=== PATIENT | female | born 1985 | race Hispanic/Latino ===

== ENCOUNTER 2018-05-17 20:13 | Observation (INO) ==
[2018-05-17] MEDS ORDERED: NS 1,000 ML IV ONE (20:57)
[2018-05-17 21:10] LABS: BASO# 0.01 X1000 (0.0-0.2); BASO% 0.1 % (0.0-0.8); EOS# 0.06 X1000 (0.0-0.7); EOS% 0.5 % (0.0-10.0); HEMATOCRIT 36.9 % (37.0-47.0); HEMOGLOBIN 12.8 g/dL (12.0-16.0); IMM GRAN# 0.03 X1000 (0.0-0.04); IMM GRAN% 0.3 % (0.0-0.5); LYMPH# 0.98 X1000 (1.2-3.4); LYMPH% 8.5 % (20.5-51.1); MCH 30.8 PG (27-31); MCHC 34.7 g/dL (33-37); MCV 88.9 FL (81-99); MONO# 0.73 X1000 (0.11-0.59); MONO% 6.3 % (1.7-9.3); MPV 11.5 FL (7.4-10.4); NEUT# 9.78 X1000 (1.4-6.5); NEUT% 84.3 % (42.2-75.2); PLT 193 X1000 (130-400); RBC 4.15 XMIL (4.2-5.4); RDW 12.9 % (11.5-14.5); WBC 11.59 X1000 (4.8-10.8)
[2018-05-17 21:11] LABS: BILIRUBIN URINE NEGATIVE (NEGATIVE); BLOOD URINE NEGATIVE (NEGATIVE); CLARITY SL. CLOUDY (CLEAR); COLOR YELLOW; GLUCOSE URINE NEGATIVE (NEGATIVE); KETONE URINE 3+(Large) mg/dL (NEGATIVE); LEUKOCYTES URINE 1+ (NEGATIVE); NITRITE URINE NEGATIVE (NEGATIVE); PROTEIN URINE 2+(100 mg/dL) mg/dL (NEGATIVE); UROBILINOGEN URINE 1 mg/dL
[2018-05-17 21:16] LABS: URINE BACTERIA 1+ /HFP; URINE EPITHELIAL CELLS >10 /HPF (<10)
[2018-05-17 21:17] LABS: URINE CAST NONE SEEN /LPF; URINE CRYSTAL NONE SEEN /HPF; URINE SOURCE CLEAN CATCH; URINE WBC <10 /HPF (<10); URINE YEAST NONE SEEN /HPF
[2018-05-17 21:34] LABS: AGAP 13; ALBUMIN 4.5 g/dL (3.5-5.0); ALKALINE PHOSPHATASE 62 U/L (32-104); AMYLASE 38 U/L (20-200); BUN 11 mg/dL (8-22); CALCIUM 8.6 mg/dL (8.8-10.2); CHLORIDE 99 mmol/L (98-107); COSMO 280; CREATININE 0.5 mg/dL (0.5-0.9); ESTIMATED GFR > 60; GLUCOSE 147 mg/dL (70-104); GOT 30 U/L (10-30); GPT 46 U/L (10-36); LIPASE 14 U/L (13-60); MAGNESIUM 1.6 mg/dL (1.5-2.7); SODIUM 139 mmol/L (136-145); TCO2 27 mmol/L (25-35); TOTAL PROTEIN 7.2 g/dL (6.3-8.3)
[2018-05-17 21:48] LABS: INFLUENZA A NEGATIVE (NEGATIVE); INFLUENZA B NEGATIVE (NEGATIVE)
[2018-05-17] MEDS ORDERED: MORPHINE IV ONE (21:54)
--- NOTE | 2018-05-18 00:10 | PROVIDER DOCUMENTATION ---
This chart was entered by Martina Dunham Scribe, acting as scribe for Shonda Stein MD. HPI-Abdominal Pain/GI Problem - General Chief Complaint: Abdominal Pain Stated Complaint: N/V/D Time Seen by Provider: 05/17/18 20:53 Source: patient Allergies/Adverse Reactions: Patient Allergies Allergy/AdvReac Type Severity Reaction Status Date / Time No Known Allergies Allergy Verified 05/17/18 20:27 Home Medications: Home Medication List Medication Instructions Recorded Confirmed Last Taken Type Pnv Cmb#95/Ferrous Fumarate/FA 1 tab PO DAILY 12/14/14 12/14/14 12/13/14 09:00 History [ Tablet] Hydrocodone/APAP 10 mg/325 mg 1 each PO Q3-4H PRN PRN #30 tablet 12/16/14 Unknown Rx [[id number]] - History of Present Illness-ABD Abdominal Pain Onset Location: reports: generalized abdomen Pain Radiation: reports: no radiation Quality of Pain: reports: pressure Severity in ED: reports: moderate Onset/Duration: reports: 1-3 hours ago, this afternoon Timing: reports: still present Activities at Onset: reports: light activity Exposure to sick contacts?: No Modifying Factors: improves with: nothing Associated Symptoms: reports: diarrhea, fatigue, fever/chills, nausea, vomiting Last BM: this evening Dark Stools Present?: reports: none noticed Rectal Bleeding: reports: none Rectal Pain: reports: none Bruising or Bleeding Gums?: No Similar Symptoms Previously?: No Recently seen or treated by another doctor?: No Review of Systems - Adult - REVIEW OF SYSTEMS - ADULT Constitutional: reports: chills, fatique. denies: fever Eyes: reports: no symptoms reported Ears, Nose, Mouth & Throat: reports: no symptoms reported Cardiovascular: denies: chest pain, palpitations, syncope Respiratory: denies: cough, shortness of breath Gastrointestinal: reports: abdominal pain, diarrhea, nausea, vomiting Genitourinary: reports: no symptoms reported Musculoskeletal: reports: muscle aches Integumentary: reports: no symptoms reported Neurological: reports: headache/migraines Psychiatric: reports: no symptoms reported Endocrine: reports: no symptoms reported Hematologic/Lymphatic: reports: no symptoms reported Allergic/Immunologic: reports: no symptoms reported All Other Systems: Reviewed and Negative Past History - Adult - PAST MEDICAL HISTORY-ADULT Review of Records: reports: Old Records Reviewed, Nursing Assessment Review, Medications Reviewed, Social history reviewed & non-contributory. Major Childhood Illnesses: reports: denies history Cardiovascular: reports: hyperlipidemia Respiratory: reports: denies history Gastrointestinal: reports: denies history Obstetrical/Gynecological: reports: denies history Genitourinary: reports: denies history Musculoskeletal: reports: denies history Neurological: reports: denies history Endocrine/Immune: reports: Diabetes Other Conditions: reports: denies history - IMMUNIZATION STATUS Childhood Immunizations: See Nurse Assessment Flu Vaccine: See Nurse Assessment - FAMILY HISTORY Family History: reviewed, not pertinent - SOCIAL HISTORY Smoking: denies Substance Use: denies Living Situation: family Physical Exam-General - PHYSICAL EXAM-ADULT Initial Vital Signs Reviewed: Yes - CONSTITUTIONAL General Appearance: alert, mild distress - EYES Eyes: PERRL/EOMI - HEAD, EARS, NOSE, MOUTH & THROAT HENMT: normocephalic/atraumatic, moist mucous membranes, normal ENT inspection - NECK Neck: non-tender, full range of motion, supple, normal inspection - RESPIRATORY Respiratory: chest non-tender, lungs clear, normal breath sounds - CARDIOVASCULAR Cardiovascular: normal peripheral pulses, regular rate, rhythm, no edema - GASTROINTESTINAL (ABDOMEN) Abdominal Exam: soft, abnormal bowel sounds (decreased bowel sounds), tenderness (epigastric tenderness) - LYMPHATIC Lymphatic: no adenopathy - MUSCULOSKELETAL Back Exam: normal inspection, no CVA tenderness, no vertebral tenderness Extremity: normal range of motion, non-tender, normal gait, normal inspection - SKIN Integumentary: normal color, normal turgor, warm/dry - NEUROLOGIC Neurologic: grossly normal, no motor/sensory deficits - PSYCHIATRIC Psych/Mental Status: normal mood/affect, normal thought content, normal thought process, oriented x 3 Progress - PLAN OF CARE/RESULTS Progress/Plan/Lab Results: Vital Signs - 8 hr 05/17/18 20:18 Temperature 98.2 F Pulse Rate 93 H Respiratory Rate 20 Blood Pressure 103/69 O2 Sat by Pulse Oximetry 96 Laboratory Results - last 24 hr 05/17/18 05/17/18 20:43 20:58 WBC 11.59 H RBC 4.15 L Hgb 12.8 Hct 36.9 L MCV 88.9 MCH 30.8 MCHC 34.7 RDW Std Deviation 12.9 Plt Count 193 MPV 11.5 H Immature Gran % (Auto) 0.3 Neut % (Auto) 84.3 H Lymph % (Auto) 8.5 L [place] % (Auto) 6.3 Eos % (Auto) 0.5 Baso % (Auto) 0.1 Immature Gran # (Auto) 0.03 Neut # (Auto) 9.78 H Lymph # (Auto) 0.98 L [place] # (Auto) 0.73 H Eos # (Auto) 0.06 Baso # (Auto) 0.01 Urine Color YELLOW Urine Clarity SL. CLOUDY A Urine pH 9.0 Ur Specific [place] 1.010 Urine Protein 2+(100 mg/dL) A Urine Ketones 3+(Large) A Urine Blood NEGATIVE Urine Nitrite NEGATIVE Urine Bilirubin NEGATIVE Urine Urobilinogen 1 Urine WBC 1+ A Urine Glucose NEGATIVE Orders Category Date Time Status ED: Urine Bedside ORDERED Care 05/17/18 20:28 Active NPO Diet 05/17/18 20:[address] ABD/PELVIS W/IV CONT ONLY [CT] Stat Exams 05/17/18 21:00 Ordered AMYLASE [CHEM] Stat Lab 05/17/18 20:58 Received CBC WITH DIFF [HEME] Stat Lab 05/17/18 20:58 Completed COMPREHENSIVE METABOLIC PANEL [CHEM] Stat Lab 05/17/18 20:[address] Stat Lab 05/17/18 21:04 Ordered LIPASE [CHEM] Stat Lab 05/17/18 20:58 Received MAGNESIUM [CHEM] Stat Lab 05/17/18 20:58 Received TEST-URINE [PREG] Stat Lab 05/17/18 20:43 Received ua [URINALYSIS PL W/POSS RFLX CULT] [URINALYSIS] Stat Lab 05/17/18 20:43 Results 0.9% Sodium Chloride Inj [Ns] 1,000 ml Med 05/17/18 20:57 Active IV 999 mls/hr Abd Pain/OB <20 weeks Stat Oth 05/17/18 20:28 Ordered Result Diagrams: 05/17/18 20:58 05/17/18 20:58 - REASSESSMENT Reassessment #1 Time Reassessed: 23:40 Status: other (PENDING HOSPITALIST TO CALL FOR FOR THIS 32 YEAR OLD FEMALE WITH HISTORY OF DM (NOT ON ANY MEDICATION) PRESENTS WITH ABDOMINAL PAIN OUT OF PROPORTION WITH MILDLY NEUTROPHILIC LEUKOCYTOSIS WITH CT REVEALING ONLY PROBABLE LEFT OVARIAN CYST. SLIGHTLY UA WITH UTI BUT ASYMPTOMATIC.) Reassessment #2 Time Reassessed: 00:09 Status: other (SPOKE TO HOSPITALIST; APPRECITE THEIR ASSISTANC.E) Departure - Departure Date of Disposition Decision: 05/18/18 Time of Disposition Decision: 00:09 DIAGNOSIS: Abdominal pain, Ovarian cyst Disposition: ADMITTED INPATIENT Certified Medical Emergency: Emergent Condition: Fair Referrals and Follow-Ups: Anastasia Dyer CRNP [Primary Care Provider] - - Critical Care Note This patient required my direct & personal management of CC.: No Attestation - Physician/ JAMSHID Attestation Patient care was provided by Advanced Practice Provider:: No The physician spent face to face time with patient:: Yes Advanced Practice Provider documentation review:: Supervising physician onsite and consulted in the evaluation and care of this patient. The physician did have a face to face encounter with the patient. This chart was documented by the indicated scribe, (Martina Dunham, Manuel) and a ccurately reflects the services I performed and decisions made by me, Shonda Stein MD, as attested by the provider's signature.
[2018-05-18] MEDS ORDERED: NS 1,000 ML IV ONE (00:12)
[2018-05-18] MEDS ORDERED: MORPHINE IV SCH (00:15)
[2018-05-18] MEDS ORDERED: MORPHINE IV PRN (02:22)
--- NOTE | 2018-05-18 05:58 | Diag Imaging Result Doc PS360 ---
EXAM: CT ABD/PELVIS W/IV CONT ONLY HISTORY: EPIGASTIRC PAIN TECHNIQUE: CT abdomen and pelvis with intravenous contrast COMPARISON: None. FINDINGS: There is prominent fatty infiltration of the liver. No calcified gallstones or adjacent inflammation. Normal spleen, pancreas, adrenal glands, and kidneys. No hydronephrosis. Normal aorta. Normal appendix. No abscess. There is stool throughout the colon. No bowel obstruction. No ascites. There is a 3.7 cm left ovarian cyst. There are small right ovarian cyst. Normal uterus with a small amount of fluid in the uterine cavity. The urinary bladder is only mildly distended. IMPRESSION: 1.Fatty infiltration of the liver 2.There is a 3.7 cm left ovarian cyst 3.Constipation 4.A preliminary report was given at 10:43 PM on 05/17/2018 This exam was performed using automated exposure control, adjustment of mA or kV according to patient size, and/or use of iterative reconstruction technique. Electronically signed by Nelson Ma 05/18/2018 5:56 AM
[2018-05-18 06:41] LABS: BASO# 0.01 X1000 (0.0-0.2); BASO% 0.1 % (0.0-0.8); EOS# 0.03 X1000 (0.0-0.7); EOS% 0.4 % (0.0-10.0); HEMATOCRIT 34.5 % (37.0-47.0); HEMOGLOBIN 11.3 g/dL (12.0-16.0); IMM GRAN# 0.02 X1000 (0.0-0.04); IMM GRAN% 0.2 % (0.0-0.5); LYMPH# 0.97 X1000 (1.2-3.4); LYMPH% 11.7 % (20.5-51.1); MCH 29.7 PG (27-31); MCHC 32.8 g/dL (33-37); MCV 90.6 FL (81-99); MONO# 0.48 X1000 (0.11-0.59); MONO% 5.8 % (1.7-9.3); MPV 11.7 FL (7.4-10.4); NEUT# 6.79 X1000 (1.4-6.5); NEUT% 81.8 % (42.2-75.2); PLT 179 X1000 (130-400); RBC 3.81 XMIL (4.2-5.4); RDW 13.3 % (11.5-14.5)
[2018-05-18 07:23] LABS: AGAP 11; ALBUMIN 3.5 g/dL (3.5-5.0); ALKALINE PHOSPHATASE 50 U/L (32-104); BUN 8 mg/dL (8-22); CALCIUM 7.3 mg/dL (8.8-10.2); CHLORIDE 105 mmol/L (98-107); COSMO 280; CREATININE 0.3 mg/dL (0.5-0.9); ESTIMATED GFR > 60; GLUCOSE 109 mg/dL (70-104); GOT 35 U/L (10-30); GPT 47 U/L (10-36); MAGNESIUM 1.6 mg/dL (1.5-2.7); POTASSIUM 3.4 mmol/L (3.5-5.1); SODIUM 141 mmol/L (136-145); TCO2 25 mmol/L (25-35); TOTAL PROTEIN 6.1 g/dL (6.3-8.3)
--- NOTE | 2018-05-18 07:36 | Diag Imaging Result Doc PS360 ---
EXAM: US PELVIC NON-OB (LIMITED) HISTORY: CT REVEAL PROBABLE 3.9 X 2.2 X 3.5 CM LEFT OVARIAN TECHNIQUE: Pelvic ultrasound COMPARISON: None. FINDINGS: The uterus measures 8.9 x 4.3 x 4.5 cm. No uterine abnormality. Endometrium is not thickened. The left ovary contains a 3.1 cm simple cyst. The appearance is unchanged from the recent CT. No adnexal mass. No free fluid. Right ovary is not identified. IMPRESSION: Small left ovarian cyst. A preliminary report was given at 2:24 AM Electronically signed by Nelson Ma 05/18/2018 7:34 AM
[2018-05-18] MEDS: LACTULOSE PO SCH ×2 (09:30→21:26)
--- NOTE | 2018-05-18 11:47 | HISTORY AND PHYSICAL ---
CHIEF COMPLAINT: Abdominal pain, nausea, vomiting and diarrhea. HISTORY OF PRESENT ILLNESS: This is a 32-year-old female who presented to the emergency room after having 3 hours of generalized abdominal pain with diarrhea, nausea, vomiting, and subjective fever and chills. She denied any black or bloody vomitus or stools. PAST MEDICAL HISTORY: 1. Diabetes mellitus. 2. Hyperlipidemia. PAST SURGICAL HISTORY: Denies. SOCIAL HISTORY: She denies alcohol, tobacco, or illicit drug use. ALLERGIES: No known drug allergies. HOME MEDICATIONS: Denies. REVIEW OF SYSTEMS: Discussed with the patient with pertinent positives stated in the HPI. She denied any syncope, dizziness, any palpitations, any chest pain, any shortness of breath, cough, any black or bloody vomitus or stools, any hematuria, dysuria, frequency, urgency. PHYSICAL EXAMINATION: GENERAL: This is a 32-year-old female who is sitting up in the bed in no distress. VITAL SIGNS: Blood pressure is 98/58 with a heart rate of 88, respirations are 16, temperature is 98.1 degrees oral with room air saturations 98-100%. EYES: Pupils are equal, round, react to light. EOMs are intact. Sclerae anicteric. HEENT: Head is normocephalic, atraumatic. Mucous membranes are moist. NECK: Supple with trachea midline. CARDIOVASCULAR: Regular rate and rhythm. S1 and S2 appreciated. EXTREMITIES: She has no lower extremity edema. Peripheral pulses are palpable x4. Calves are nontender to palpation. PULMONARY: Breath sounds are clear with no increased work of breathing noted. Chest rises and falls symmetrically with respiration. Chest wall is nontender to palpation. GASTROINTESTINAL: Abdomen is soft, nontender, with bowel sounds in all 4 quadrants. NEUROLOGIC: She is alert and oriented x3. GENITOURINARY: She has no CVA nor suprapubic tenderness. SKIN: Warm and dry. LABS: 1. WBC is 11.5 with hemoglobin 12.8, hematocrit 36.9, platelets of 193,000. Sodium 139, potassium 4, BUN 11, creatinine 0.5 with a glucose of 147. Urinalysis reveals 1+ bacteria, greater than 10 epithelial cells with less than 10 microscopic white blood cells. Urine culture reveals no growth. 2. CT of the abdomen and pelvis revealed fatty infiltration of the liver. There is a 3.7 cm left ovarian cyst with stool throughout the colon. No bowel obstruction. No ascites. Normal uterus with a small amount of fluid in the uterine cavity. Urinary bladder is mildly distended. 3. Transvaginal pelvic ultrasound revealed small ovarian cyst at 3.1 cm. No free fluid. Endometrium is not thickened. ASSESSMENT AND PLAN: 1. Abdominal pain. 2. Constipation. 3. Ovarian cyst. 4. Diabetes mellitus. 5. Hyperlipidemia. PLAN: The patient has been admitted to the medical-surgical floor with IV hydration. She has had no further nausea or vomiting. She has had no diarrhea stools. We will give lactulose for constipation, monitor her I O. She is hungry at present. We will start a regular diet. Further treatments pending hospital course. Dictated by COBY Chase for Brad Holbrook MD This chart was documented by, COBY Chase and accurately reflects the services performed, treatment plan and medical decisions as attested by the providers signature Brad Holbrook MD. cc: COBY Chase MD
--- NOTE | 2018-05-18 15:01 | HISTORY AND PHYSICAL ---
ADDENDUM: Patient seen and examined by myself. Full note dictated and discussed with nurse practitioner. Patient is having abdominal pain. It appears though she has constipation. We will attempt to treat her for her constipation and will follow. Please see full orders. cc: Brad Holbrook MD
[2018-05-19 07:33] VITALS: BP 93/52
[2018-05-19] MEDS: LACTULOSE PO SCH (08:42)
--- NOTE | 2018-05-19 09:55 | DISCHARGE SUMMARY ---
ADMISSION DATE: 05/18/2018 DISCHARGE DATE: 05/19/2018 DIAGNOSES: 1. Abdominal pain, resolved. 2. Constipation, resolving. 3. Ovarian cyst. 4. Diabetes mellitus. 5. Hyperlipidemia. DIAGNOSTICS: 1. 05/17/2018 CT of the abdomen and pelvis with IV contrast revealed fatty infiltration of the liver. A 3.76 cm left ovarian cyst, constipation with stool throughout the colon. No bowel obstruction. No ascites. 2. 05/18/2018 Pelvic ultrasound non OB revealed a small left ovarian cyst, a 3.1 cm simple cyst. No adnexal mass. No free fluid. 3. Microbiology: Urine culture revealed no growth. HOSPITAL COURSE: The patient presented to the emergency room having 3 hours of abdominal pain with diarrhea, nausea, and vomiting. She was found to be constipated for which she was given lactulose. After having 3 large bowel movements, her symptoms resolved. She was able to eat supper last night and breakfast this morning with no abdominal pain, nausea or vomiting, and thankfully she is ready to be discharged. DISCHARGE PHYSICAL EXAMINATION: Cardiovascular: Regular rate and rhythm. S1 and S2 appreciated. Pulmonary: Breath sounds are clear with no increased work of breathing noted. Gastrointestinal: Abdomen is soft, nontender, and nondistended with bowel sounds in all 4 quadrants. Neurologic: She is alert and oriented x3. Skin: Warm and dry. DISCHARGE VITAL SIGNS: Blood pressure is 97/57 with a heart rate of 78, respirations are 18, temperature is 97.6 degrees oral with room air saturations 98 to 100. FOLLOW-UP: 1. She is to follow up with her primary care provider COBY Winslow in the next 1 to 2 weeks. She has been instructed to call to be seen sooner or return to the ER for temperature greater than 101, recurring abdominal pain, nausea, vomiting, recurring diarrhea, any black or bloody vomitus or stools, any syncope, dizziness, chest pain, palpitations, or any questions or concerns that she may have. DISCHARGE MEDICATIONS: MiraLAX 17 g daily p.r.n. constipation. TIME SPENT: This is a greater than 30 minute discharge. Dictated by COBY Chase for Brad Holbrook MD This chart was documented by, COBY Chase and accurately reflects the services performed, treatment plan and medical decisions as attested by the providers signature Brad Holbrook MD. cc: COBY Chase MD Johnna Langford, CRNP MTDD
--- NOTE | 2018-05-20 02:31 | DISCHARGE SUMMARY ---
ADMISSION DATE: 05/18/2018 DISCHARGE DATE: 05/19/2018 DISCHARGE DIAGNOSES: 1. Abdominal pain, resolved [*]complication, improved. 2. Nausea, vomiting, resolved. 3. Hypertension, stable. 4. Diabetes. 5. Hyperlipidemia. CONSULTATIONS: None. PROCEDURES: None. BRIEF HOSPITAL COURSE: This is a 32-year-old female who presented to the emergency department with abdominal pain, subsequently diagnosed with constipation. She was given medication for constipation, started having bowel movements. Her pain improved. Thankfully, she continued to improve. On discharge, she is awake, alert, she is in no distress. DISPOSITION: Patient will be discharged home. She will continue MiraLAX at home. Will follow up outpatient with primary care of her choice. No discharge medications were changed. cc: Brad Holbrook MD
== END 2018-05-19 10:55 | disposition home or self-care (01) ==
LOC: P.ED 20:13 → P.MEDSURG 20:13 → SUATTDRO 05-18 01:06
PROVIDERS: ATTEND Family Medicine
CPT/HCPCS: 74177; 76857; 80053; 81001; 81025; 82150; 83690; 83735; 85025; 87088; 87275; 87276; 87804; 96374; 99285; A9270; G0378; J2270; J7030; Q9967